=== PATIENT | female | born 1960 | race Caucasian/White ===

== ENCOUNTER 2016-05-30 19:46 | Emergency (ER) | payer OTHER, BC ==
[~2016-05-30] VITALS: Ht 167.6 cm; Wt 128.6 kg
[~2016-05-30 19:46] MED LIST: DOXE50 PO; EXEN1INJ; GLUC10TA3 PO; GLUCTAB PO; HYDR-2768 PO; LABE100 PO; LEVO50TA4 PO; LISI-360 PO; MACR100C PO; PIOG15 PO; PROZ40CA PO; PYRI200T4 PO
[2016-05-30 20:57] VITALS: BP 139/74; PULSE 81; RESP 18; TEMP 98.6; O2SAT 99
[2016-05-30] MEDS ORDERED: VICT18IN SQ (21:26)
[2016-05-30] MEDS ORDERED: LIOT25TA3 PO (21:26)
[2016-05-30] MEDS ORDERED: METF850T PO (21:26)
[2016-05-30] MEDS ORDERED: LEVO50TA4 PO (21:26)
[2016-05-30] MEDS ORDERED: LISI20TA3 PO (21:26)
[2016-05-30] MEDS ORDERED: GLIM4TAB PO (21:26)
[2016-05-30] MEDS ORDERED: FLUO40CA PO (21:26)
[2016-05-30] MEDS ORDERED: ATEN25TA PO (21:26)
[2016-05-30] MEDS ORDERED: DOXE150C7 PO (21:26)
[2016-05-30] MEDS ORDERED: GABA300C5 PO (21:26)
[2016-05-30] MEDS ORDERED: ORPHENADRINE INJ 60 MG/2 ML AMP IM ONE (21:30)
[2016-05-30] MEDS ORDERED: KETOROLAC TROMETHAMINE 60 MG/2 ML (IM) VIAL IM ONE (21:30)
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
[2016-05-30] MEDS ORDERED: CYCL1TAB29 PO (22:38)
[2016-05-30] MEDS ORDERED: IBUP-232 PO (22:38)
[2016-05-30 22:46] VITALS: BP 145/76
[2016-05-30 22:47] VITALS: RESP 18
== END 2016-05-30 22:47 | disposition home or self-care (01) ==
LOC: PHED 19:46 → PHEFT 22:47
DX: S16.1XXA Strain of muscle, fascia and tendon at neck level, initial encounter (principal); M62.838 Other muscle spasm; R51 Headache; E11.9 Type 2 diabetes mellitus without complications; I10 Essential (primary) hypertension; V43.52XA Car driver injured in collision with other type car in traffic accident, initial encounter; Y93.89 Activity, other specified; Y92.410 Unspecified street and highway as the place of occurrence of the external cause; Y99.8 Other external cause status
CPT/HCPCS: 96372; 99283; J1885; J2360